=== PATIENT | female | born 1940 | race African-American/Black ===

== ENCOUNTER 2017-04-11 18:34 | Emergency (ER) | payer OTHER ==
[~2017-04-11] VITALS: Ht 152.4 cm; Wt 77.1 kg
[~2017-04-11 18:34] MED LIST: PANT40T PO
[2017-04-11 18:42] VITALS: BP 133/72
[2017-04-11] MEDS ORDERED: LORazepam 0.5 MG TAB PO ONE (20:00)
== END 2017-04-11 20:27 | disposition home or self-care (01) ==
LOC: EDBD 18:34 → ER 18:35
DX: F41.9 Anxiety disorder, unspecified (principal); K21.9 Gastro-esophageal reflux disease without esophagitis; I10 Essential (primary) hypertension
CPT/HCPCS: 93005

== ENCOUNTER 2018-04-12 10:47 | Emergency (ER) | payer OTHER ==
[~2018-04-12] VITALS: Ht 154.9 cm; Wt 76.2 kg
[2018-04-12 11:28] LABS: Urine Bacteria FEW /hpf (None Seen); Urine Blood Negative /uL (Negative); Urine Mucus FEW (None Seen); Urine Specific Gravity 1.021 (1.001-1.035); Urine WBC 4 /hpf (0 - 5)
[2018-04-12 12:10] LABS: Basophils # (auto) 0 uL; Eosinophils # (auto) 0.1 uL; Lymphocytes # (auto) 2.1 uL; Monocytes # (auto) 0.5 uL; Neutrophils # (auto) 4.4 uL; Red Cell Distribution Width 15.8 % (11.8-14.3)
[2018-04-12 12:14] LABS: Basophils % (auto) 0.4 % (0.0-2.0); Hematocrit 37.1 % (36.0-46.0); Hemoglobin 12.3 g/dL (12.2-16.2); Lymphocytes % (auto) 29.8 % (10.0-50.0); Mean Corpuscular Hemoglobin 26.9 pg (28.0-32.0); Mean Corpuscular Hgb Conc. 33.3 g/dL (32.0-36.0); Mean Corpuscular Volume 80.8 fL (80.0-100.0); Monocytes % (auto) 6.8 % (0.0-12.0); Platelet Count (auto) 252 10^3/uL (140-450); Red Blood Cells 4.59 10^6/uL (4.0-5.20); White Blood Cell 7.2 10^3/uL (4.4-10.8)
[2018-04-12 12:27] LABS: Albumin 3.8 g/dL (3.4-5.0); Anion Gap 8 (5-15); Blood Urea Nitrogen 15 mg/dL (7-18); Calcium 8.8 mg/dL (8.5-10.1); Carbon Dioxide 26 mmol/L (21-32); Chloride 104 mmol/L (98-107); Glucose 95 mg/dL (74-106); Magnesium 2.2 mg/dL (1.6-2.6); Potassium 3.5 mmol/L (3.5-5.1); Sodium 138 mmol/L (136-145)
[2018-04-12 12:29] LABS: Alanine Aminotransferase 16 U/L (13-56); BUN/Creatinine Ratio 18.3; GFR African American 87 mL/min; GFR Non-African American 72 mL/min
[2018-04-12 12:34] LABS: Alkaline Phosphatase 77 U/L (45-117); Aspartate Aminotransferase 14 U/L (15-37); Bilirubin, Total 0.4 mg/dL (0.2-1.0); Total Protein 7.8 g/dL (6.4-8.2)
[2018-04-12] MEDS ORDERED: PANTOPRAZOLE 40 MG TAB PO ONE (13:45)
[2018-04-12 14:28] VITALS: BP 156/85
== END 2018-04-12 16:23 | disposition home or self-care (01) ==
LOC: ER 10:51
DX: N39.0 Urinary tract infection, site not specified (principal); K29.70 Gastritis, unspecified, without bleeding; K21.9 Gastro-esophageal reflux disease without esophagitis; I10 Essential (primary) hypertension; Z88.5 Allergy status to narcotic agent; Z90.710 Acquired absence of both cervix and uterus
CPT/HCPCS: 36415; 80053; 81001; 83735; 84484; 85025; 93005

== ENCOUNTER 2018-04-19 10:53 | Emergency (ER) | payer OTHER ==
[~2018-04-19] VITALS: Ht 154.9 cm; Wt 74.8 kg
[2018-04-19 11:36] LABS: Basophils # (auto) 0 uL; Basophils % (auto) 0.3 % (0.0-2.0); Eosinophils # (auto) 0 uL; Eosinophils % (auto) 0.5 % (0.0-7.0); Hematocrit 38.2 % (36.0-46.0); Hemoglobin 12.7 g/dL (12.2-16.2); Lymphocytes # (auto) 1.9 uL; Lymphocytes % (auto) 25.6 % (10.0-50.0); Mean Corpuscular Hgb Conc. 33.2 g/dL (32.0-36.0); Mean Corpuscular Volume 81.5 fL (80.0-100.0); Monocytes # (auto) 0.5 uL; Monocytes % (auto) 7.3 % (0.0-12.0); Neutrophils # (auto) 4.9 uL; Neutrophils % (auto) 66.3 % (37.0-80.0); Nucleated Red Blood Cells % 0.1 %; Platelet Count (auto) 260 10^3/uL (140-450); Red Blood Cells 4.68 10^6/uL (4.0-5.20); Red Cell Distribution Width 15.8 % (11.8-14.3); White Blood Cell 7.4 10^3/uL (4.4-10.8)
[2018-04-19 11:39] LABS: Urine Bacteria NONE SEEN /hpf (None Seen); Urine Blood TRACE /uL (Negative); Urine Mucus FEW (None Seen); Urine Specific Gravity 1.024 (1.001-1.035); Urine WBC 2 /hpf (0 - 5)
[2018-04-19 11:41] LABS: Albumin 3.9 g/dL (3.4-5.0); Anion Gap 8 (5-15); Blood Urea Nitrogen 19 mg/dL (7-18); Calcium 8.8 mg/dL (8.5-10.1); Carbon Dioxide 28 mmol/L (21-32); Chloride 105 mmol/L (98-107); Glucose 87 mg/dL (74-106); Potassium 3.8 mmol/L (3.5-5.1); Sodium 141 mmol/L (136-145)
[2018-04-19 11:48] LABS: Alanine Aminotransferase 19 U/L (13-56); Alkaline Phosphatase 79 U/L (45-117); Aspartate Aminotransferase 18 U/L (15-37); BUN/Creatinine Ratio 19.6; Bilirubin, Total 0.5 mg/dL (0.2-1.0); GFR African American 72 mL/min; GFR Non-African American 59 mL/min; Total Protein 7.8 g/dL (6.4-8.2)
[2018-04-19 13:03] LABS: Amylase 134 U/L (25-115); Lipase 216 U/L (73-393)
[2018-04-19 16:06] VITALS: BP 126/69
== END 2018-04-19 16:09 | disposition home or self-care (01) ==
LOC: ER 10:55
DX: K21.9 Gastro-esophageal reflux disease without esophagitis (principal); K29.70 Gastritis, unspecified, without bleeding; K57.30 Diverticulosis of large intestine without perforation or abscess without bleeding; N39.0 Urinary tract infection, site not specified; I10 Essential (primary) hypertension; Z90.710 Acquired absence of both cervix and uterus; Z88.6 Allergy status to analgesic agent
CPT/HCPCS: 36415; 74176; 80053; 81001; 82150; 83690; 83735; 84484; 85025; 93005; 94761

== ENCOUNTER 2021-06-13 13:11 | Inpatient (IN) | payer OTHER ==
[~2021-06-13] VITALS: Ht 154.9 cm; Wt 78.7 kg
[2021-06-13 14:01] LABS: Basophils # (auto) 0.1 10 ^3/uL (0-0.2); Eosinophils # (auto) 0 10 ^3/uL (0-0.8); Eosinophils % (auto) 0.1 % (0.0-7.0); Monocytes # (auto) 0.5 10 ^3/uL (0-1.3); Monocytes % (auto) 4.5 % (0.0-12.0)
[2021-06-13 14:03] LABS: Basophils % (auto) 0.7 % (0.0-2.0); Hematocrit 38.3 % (36.0-46.0); Hemoglobin 12.9 g/dL (12.2-16.2); Lymphocytes # (auto) 1.6 10 ^3/uL (0.4-5.4); Lymphocytes % (auto) 14.4 % (10.0-50.0); Mean Corpuscular Hemoglobin 26.8 pg (28.0-32.0); Mean Corpuscular Hgb Conc. 33.7 g/dL (32.0-36.0); Mean Corpuscular Volume 79.5 fL (80.0-100.0); Neutrophils # (auto) 8.7 10 ^3/uL (1.6-8.6); Neutrophils % (auto) 80.3 % (37.0-80.0); Red Blood Cells 4.81 10^6/uL (4.0-5.20); Red Cell Distribution Width 17.1 % (11.8-14.3); White Blood Cell 10.8 10^3/uL (4.4-10.8)
[2021-06-13 14:30] LABS: Albumin 4.1 g/dL (3.4-5.0); BUN/Creatinine Ratio 17.8; Calcium 9.7 mg/dL (8.5-10.1); Magnesium 2.1 mg/dL (1.6-2.6); Potassium 4.3 mmol/L (3.5-5.1)
[2021-06-13 14:37] LABS: Bilirubin, Total 0.2 mg/dL (0.2-1.0); Total Protein 8.6 g/dL (6.4-8.2)
[2021-06-13] MEDS ORDERED: ALUM & MAG HYDROX-SIMETH LIQ(MAALOX) 30 ML PO ONE (15:45)
[2021-06-13 17:49] LABS: Urine Bacteria FEW /hpf (None Seen); Urine Blood Negative /uL (Negative); Urine Hyaline Cast MANY /lpf (0 - 2); Urine Mucus FEW (None Seen); Urine WBC 22 /hpf (0 - 5)
[2021-06-13] MEDS ORDERED: cefTRIAXone 1GM/50ML D5W 50 ML IV ONE (19:45)
[2021-06-13] MEDS ORDERED: ONDANSETRON HCL 4 MG/2 ML VIAL IV PRN (20:00)
[2021-06-13] MEDS ORDERED: guaiFENesin 200 MG/10 ML UD PO PRN (20:00)
[2021-06-13] MEDS ORDERED: HYDROcodone-ACET 5/325MG TAB PO PRN (20:00)
[2021-06-13] MEDS: LACTATED RINGER'S 1,000 ML IV SCH (20:00)
[2021-06-13] MEDS ORDERED: DOCUSATE SOD 100 MG CAP PO PRN (20:00)
[2021-06-13] MEDS ORDERED: ACETAMINOPHEN 325 MG TAB PO PRN (20:00)
[2021-06-13 22:30] VITALS: BP 117/77
[2021-06-13] MEDS: HEPARIN SODIUM (PORCINE) 5000 UNITS/ML 1ML VIAL SC SCH (23:42)
[2021-06-13] MEDS: TEMAZEPAM 15 MG CAP PO PRN (23:43)
[2021-06-14] MEDS ORDERED: HYDR25TA5 PO (00:19)
[2021-06-14] MEDS ORDERED: ALPR0.5T8 PO (00:19)
[2021-06-14] MEDS ORDERED: OMEP-260 PO (00:19)
[2021-06-14] MEDS ORDERED: NIFE1TAB30 PO (00:19)
[2021-06-14] MEDS ORDERED: ATOR10TA52 PO (00:19)
[2021-06-14 05:00] VITALS: BP 115/65
[2021-06-14 06:34] LABS: Calcium 8.2 mg/dL (8.5-10.1); INR 1.05 (0.9-1.15); Magnesium 1.7 mg/dL (1.6-2.6); Partial Thromboplastin Time 27.2 sec (23.6-33.0); Potassium 3.4 mmol/L (3.5-5.1)
[2021-06-14] MEDS: HEPARIN SODIUM (PORCINE) 5000 UNITS/ML 1ML VIAL SC SCH ×3 (06:34→21:21)
[2021-06-14 06:39] LABS: Bilirubin, Total 0.4 mg/dL (0.2-1.0); Total Protein 6.8 g/dL (6.4-8.2)
[2021-06-14 07:10] LABS: Basophils # (auto) 0.1 10 ^3/uL (0-0.2); Basophils % (auto) 0.8 % (0.0-2.0); Eosinophils # (auto) 0.1 10 ^3/uL (0-0.8); Eosinophils % (auto) 1.5 % (0.0-7.0); Hematocrit 33.8 % (36.0-46.0); Hemoglobin 11.1 g/dL (12.2-16.2); Lymphocytes # (auto) 2.3 10 ^3/uL (0.4-5.4); Lymphocytes % (auto) 30.3 % (10.0-50.0); Mean Corpuscular Hemoglobin 26.7 pg (28.0-32.0); Mean Corpuscular Hgb Conc. 32.9 g/dL (32.0-36.0); Mean Corpuscular Volume 81.1 fL (80.0-100.0); Monocytes # (auto) 0.5 10 ^3/uL (0-1.3); Monocytes % (auto) 7.2 % (0.0-12.0); Neutrophils # (auto) 4.5 10 ^3/uL (1.6-8.6); Neutrophils % (auto) 60.2 % (37.0-80.0); Nucleated Red Blood Cells % 0.1 %; Red Blood Cells 4.17 10^6/uL (4.0-5.20); Red Cell Distribution Width 17.2 % (11.8-14.3); White Blood Cell 7.4 10^3/uL (4.4-10.8)
[2021-06-14 08:00] VITALS: BP 140/65
[2021-06-14] MEDS: cefTRIAXone 1GM/50ML D5W 50 ML IV SCH (09:49)
[2021-06-14] MEDS: LACTATED RINGER'S 1,000 ML IV SCH ×2 (09:50→22:40)
[2021-06-14] MEDS: ATORVASTATIN 20 MG TAB PO SCH (09:51)
[2021-06-14] MEDS: HCTZ 25 MG TAB PO SCH (09:51)
[2021-06-14] MEDS: NIFEdipine ER 30 MG TAB PO SCH (09:52)
[2021-06-14 11:50] VITALS: BP 130/103
[2021-06-14] MEDS: POTASSIUM CHL 10MEQ/50ML 50 ML IV SCH ×2 (11:57→13:02)
[2021-06-14] MEDS: SODIUM CHLORIDE 0.9% 1,000 ML IV SCH ×2 (11:59→23:50)
[2021-06-14] MEDS ORDERED: IOHEXOL 300 MG/ML 100ML BOTTLE IJ ONE (13:41)
[2021-06-14 16:25] VITALS: BP 138/74
[2021-06-14] MEDS: TEMAZEPAM 15 MG CAP PO PRN (21:45)
[2021-06-14 22:00] VITALS: BP 128/71
[2021-06-15 05:00] VITALS: BP 119/60
[2021-06-15 05:02] LABS: Basophils # (auto) 0 10 ^3/uL (0-0.2); Basophils % (auto) 0.3 % (0.0-2.0); Lymphocytes # (auto) 2.2 10 ^3/uL (0.4-5.4); Neutrophils # (auto) 3.5 10 ^3/uL (1.6-8.6); Nucleated Red Blood Cells % 0.1 %
[2021-06-15 05:06] LABS: Eosinophils # (auto) 0.2 10 ^3/uL (0-0.8); Eosinophils % (auto) 2.4 % (0.0-7.0); Hematocrit 31.5 % (36.0-46.0); Hemoglobin 10.7 g/dL (12.2-16.2); Lymphocytes % (auto) 34.4 % (10.0-50.0); Mean Corpuscular Hemoglobin 27.1 pg (28.0-32.0); Mean Corpuscular Hgb Conc. 34.1 g/dL (32.0-36.0); Mean Corpuscular Volume 79.6 fL (80.0-100.0); Monocytes # (auto) 0.5 10 ^3/uL (0-1.3); Monocytes % (auto) 8.4 % (0.0-12.0); Neutrophils % (auto) 54.5 % (37.0-80.0); Red Blood Cells 3.96 10^6/uL (4.0-5.20); Red Cell Distribution Width 17.4 % (11.8-14.3); White Blood Cell 6.5 10^3/uL (4.4-10.8)
[2021-06-15 05:21] LABS: Calcium 8.1 mg/dL (8.5-10.1); Potassium 3.5 mmol/L (3.5-5.1)
[2021-06-15 05:23] LABS: BUN/Creatinine Ratio 22.6
[2021-06-15] MEDS: HEPARIN SODIUM (PORCINE) 5000 UNITS/ML 1ML VIAL SC SCH ×2 (06:35→13:53)
[2021-06-15 09:00] VITALS: BP 146/77
[2021-06-15 10:30] VITALS: BP 135/84
[2021-06-15] MEDS: HCTZ 25 MG TAB PO SCH (11:04)
[2021-06-15] MEDS: ATORVASTATIN 20 MG TAB PO SCH (11:04)
[2021-06-15] MEDS: NIFEdipine ER 30 MG TAB PO SCH (11:04)
[2021-06-15] MEDS: cefTRIAXone 1GM/50ML D5W 50 ML IV SCH (11:05)
[2021-06-15 12:52] VITALS: BP 142/99
[2021-06-15] MEDS: SODIUM CHLORIDE 0.9% 1,000 ML IV SCH (13:34)
[2021-06-15] MEDS ORDERED: LEVO500T31 PO (16:52)
[2021-06-15 17:19] VITALS: BP 135/84
== END 2021-06-15 18:15 | disposition home or self-care (01) | DRG 690 ==
LOC: ER 13:11 → OVERFLOW 19:25 → WEST WING 22:27
PROVIDERS: ADMIT Registered Nurse; ATTEND Internal Medicine
DX: N39.0 Urinary tract infection, site not specified (principal); N17.9 Acute kidney failure, unspecified; D50.9 Iron deficiency anemia, unspecified; N18.30 Chronic kidney disease, stage 3 unspecified; E78.00 Pure hypercholesterolemia, unspecified; I12.9 Hypertensive chronic kidney disease with stage 1 through stage 4 chronic kidney disease, or unspecified chronic kidney disease; R91.1 Solitary pulmonary nodule; E66.9 Obesity, unspecified; E78.5 Hyperlipidemia, unspecified; E87.6 Hypokalemia; F41.9 Anxiety disorder, unspecified; K21.9 Gastro-esophageal reflux disease without esophagitis; R79.89 Other specified abnormal findings of blood chemistry; M17.0 Bilateral primary osteoarthritis of knee; Z20.822 Contact with and (suspected) exposure to COVID-19; Z68.32 Body mass index [BMI] 32.0-32.9, adult; Z79.899 Other long term (current) drug therapy; Z82.49 Family history of ischemic heart disease and other diseases of the circulatory system; Z88.5 Allergy status to narcotic agent; Z86.73 Personal history of transient ischemic attack (TIA), and cerebral infarction without residual deficits; Z87.11 Personal history of peptic ulcer disease; Z87.440 Personal history of urinary (tract) infections; Z90.49 Acquired absence of other specified parts of digestive tract; Z90.710 Acquired absence of both cervix and uterus
CPT/HCPCS: 36415; 71045; 71046; 71260; 74177; 78582; 80048; 80053; 80061; 81001; 83036; 83735; 83880; 84100; 84443; 84484; 85025; 85379; 85610; 85730; 87040; 87086; 87426; 93005; 93970; 96361; 96365; 97163; G0378; J0696

== ENCOUNTER → 2024-12-19 | Day surgery (SDC) | payer OTHER ==
[2024-12-19] VITALS (7 sets, daily range): BP systolic 108–132; BP diastolic 70–74; PULSE 66–72; RESP 10–19; TEMP 98.9; O2SAT 93–97
[~2024-12-19] VITALS: Ht 154.9 cm; Wt 77.1 kg
[~2024-12-19] MED LIST changes: +ALPR0.5T8 PO; +ASPI-543 PO; +ATOR10TA52 PO; +LABE200T33 PO; +LOSA-534 PO; +NIFE1TAB31 PO; +OMEP1CAP70 PO; -PANT40T PO; +TRAM50TA2 PO
[2024-12-19] MEDS: fentaNYL CITRATE 100 MCG/2 ML VL ONE ×2 (14:15→16:26)
[2024-12-19] MEDS: VERAPAMIL 2.5MG/ML INJ 2ML VIAL IV ONE (14:15)
[2024-12-19] MEDS: ANGIOMAX 250 MG VIAL IV ONE (14:15)
[2024-12-19] MEDS: HEPARIN SODIUM (PORCINE) 5000 UNITS/ML 1ML VIAL ONE (14:15)
[2024-12-19] MEDS: MIDAZOLAM HCL 2MG/2ML 2ml VIAL (1mg/ml) ONE ×2 (14:15→16:26)
[2024-12-19] MEDS: IODIXANOL 320MG/ML 100ML BTL IV ONE (14:16)
[2024-12-19] MEDS: LIDOCAINE 2%HCL (LOCAL ANESTH.) INJ 20ML MDV ONE (14:16)
[2024-12-19] MEDS: SODIUM CHL 0.9% 0 ML ONE (14:17)
[2024-12-19] MEDS: NITROGLYCERIN 50MG/250ML 250 ML IV ONE (14:23)
[2024-12-19] MEDS: NITROGLYCERIN 5MG/ML 10ML VIAL IV ONE (14:23)
--- NOTE | 2024-12-19 16:46 | DVHOP2 ---
Operative Report - 2 Report Details Date: 12/19/24 Preop Diagnosis: CAD Postop Diagnosis: Mild CAD Surgeon: Lidia Booth MD Anesthesiologist: Conscious sedation Anesthesia: Mac, Local Consent: The patient was informed of the risks and benefits of the procedure. These include but are not limited to complications of anesthesia, postoperative infection, incomplete relief of symptoms, recurrence of symptoms, damage to blood vessels, nerves and tendons, deep venous thrombosis, pulmonary embolism and possible need for repeat surgery in the future. Complications: No complications Findings: Mild CAD Indications for Surgery: Chest pain. Abnormal stress test. Name of Procedure Performed Left heart catheterization. Bilateral cine coronary angiography. Left ventriculography. Procedure Details Procedure Details: Prior local anesthesia with 2% lidocaine to the right wrist and full informed consent obtained the patient was prepped and draped in usual fashion followed by placement of a six [place] sheath in the radial artery through which a multipurpose catheter was used to perform ventriculography. We were not able to cannulate either the left or the RCA. We then obtained a AL1 guide and were able to cannulate the left main. We could not cannulate the RCA with any catheter. There was significant tortuosity at the right innominate. We had to proceed from the right femoral artery with a JR4 after placing a six [place] sheath into the femoral artery. We closed the femoral artery with a seal device at the end of the procedure. Patient tolerated the procedure well there were no complications Hemodynamics: aortic blood pressure was 110/70. End-diastolic pressure was eight. No gradient across the aortic valve on pullback. Coronary anatomy: The RCA is a large vessel is normal in its proximal mid and distal segments. Mild plaquing posterolateral branches. No critical lesions noted. PDA is. Left main is large and normal. Left anterior descending is large no significant stenosis. Diagonals are free of significant disease as is the. Circumflex is large with two marginals free of significant disease Ventriculography in the SARAVIA projection shows an EF of 55%. Impression: Normal left ventricular end-diastolic pressure was normal ejection fraction. No CAD significance. Recommendations: Medical therapy is to continue. Risk factor modification. Condition Good Disposition Home Date of Service: Dec 19, 2024 Billing Provider: LIDIA BOOTH Sr., MD Cardiology Common Codes: 67136-RMFMGVO INP/OBS CARE (High) Cardiology Procedure Codes: 29847-XCEI HEART CATH W/INTRA INJ LIDIA BOOTH Sr., MD Dec 19, 2024 16:46
--- NOTE | 2024-12-20 10:38 | ECG ---
[facility] Test Date: 2024-12-19 Test Time: 11:40:40 Pat Name: SHARMAINE FUNK Department: Room: Gender: F [employer] Supervisor: ROBERT : 1940 Requested By: LIDIA BOOTH Order Number: [id number] Reading MD: Lidia Booth Measurements Intervals [place] Rate: 69 P: 54 [place]: 184 QRS: -42 QRSD: 90 T: 16 QT: 446 QTc: 477 Interpretive Statements Sinus rhythm with fusion complexes Left axis deviation Inferior infarct , age undetermined Electronically Signed On 12-20-2024 14:39:17 PDT by Lidia Booth Please click the below link to view image of tracing.
== END | disposition home or self-care (01) ==
LOC: CATH 11:05
PROVIDERS: ATTEND Internal Medicine
DX: R94.39 Abnormal result of other cardiovascular function study (principal); I25.10 Atherosclerotic heart disease of native coronary artery without angina pectoris; R07.89 Other chest pain; I13.0 Hypertensive heart and chronic kidney disease with heart failure and stage 1 through stage 4 chronic kidney disease, or unspecified chronic kidney disease; I50.32 Chronic diastolic (congestive) heart failure; N18.30 Chronic kidney disease, stage 3 unspecified; E78.5 Hyperlipidemia, unspecified; I25.2 Old myocardial infarction; G47.00 Insomnia, unspecified; Z79.899 Other long term (current) drug therapy; Z98.890 Other specified postprocedural states; E66.811 Obesity, class 1; Z68.32 Body mass index [BMI] 32.0-32.9, adult
CPT/HCPCS: 93005; 93458; C1760; C1769; C1894; J1644; J2250; J3010; J7030; Q9967; 99152; J3490